=== PATIENT | male | born 1970 | race Caucasian/White ===

== ENCOUNTER 2017-05-10 17:21 | Inpatient (IN) | payer BC ==
[~2017-05-10] VITALS: Ht 180.3 cm; Wt 86.4 kg
[2017-05-10 17:22] VITALS: BP 163/89; PULSE 81; RESP 18; TEMP 98.5; O2SAT 99
--- NOTE | 2017-05-10 18:04 | PD ---
HPI Chief Complaint: Depression Time Seen by Provider: 17:37 Travel History International Travel<30 days: No Contact w/Intl Traveler<30days: No Traveled to known affect area: No History of Present Illness HPI PATIENT HAS A HISTORY OF ANXIETY AND DEPRESSION, HAS DR MENDOZA HIS PSYCHIATRIST IN [facility] BUT CANNOT SEE HIM UNTIL JUNE...IN THE MEANTIME PT COMPLAINTS OF DEPRESSION AND SUICIDAL IDEATION...SPECIFICALLY HAS THOUGHT OF MULTIPLE WAYS OF KILLING HIMSELF SINCE THAT IN HIS MIND WILL MAKE EVERYTHING SIMPLER FOR EVERYBODY...HAD THOUGHTS OF GOING OUT OF BOAT AND USING A ROPE TO HANG HIMSELF....AT ANOTHER TIME THOUGHT OF OVERDOSING ON HIS MEDICATIONS, AND ALSO THOUGHT OF TURNING THE CAR ON IN [place] TO USE FUMES TO KILL HIMSELF...THESE THOUGHTS HAVE BEEN GETTING MORE AND MORE PERSISTENT LATELY WHICH IS WHY HE DECIDED TO COME IN FOR INPATIENT CARE. PFSH Social History Tobacco Use: No Allergies-Medications (Allergen,Severity, Reaction): Coded Allergies: No Known Allergies (Unverified , 05/10/17) Reported Meds & Prescriptions Reported Meds & Active Scripts Active Reported Bupropion HCl 100 Mg Tab 150 Mg PO DAILY Buspirone (Buspirone HCl) 15 Mg Tab 15 Mg PO BID Trazodone (Trazodone HCl) 100 Mg Tablet 100 Mg PO HS Ativan (Lorazepam) 0.5 Mg Tab 0.5 Mg PO HS PRN Zoloft (Sertraline HCl) 50 Mg Tab 50 Mg PO DAILY Nexium (Esomeprazole DR) 20 Mg Capdr 20 Mg PO DAILY Finasteride (Finasteride (Alopecia)) 1 Mg Tab 1.25 Mg PO DAILY Zolpidem (Zolpidem Tartrate) 10 Mg Tab 12.5 Mg PO HS PRN Review of Systems Except as stated in HPI: all other systems reviewed are Neg General / Constitutional: No: Fever Eyes: No: Visual changes HENT: No: Headaches Cardiovascular: No: Chest Pain or Discomfort Respiratory: No: Shortness of Breath Gastrointestinal: No: Abdominal Pain Genitourinary: No: Dysuria Musculoskeletal: No: Pain Skin: No Rash Neurologic: No: Weakness Psychiatric: Positive: Depression, Suicidal Ideations Endocrine: No: Polydipsia Hematologic/Lymphatic: No: Easy Bruising Physical Exam Narrative GENERAL: SKIN: Warm and dry. HEAD: Atraumatic. Normocephalic. EYES: Pupils equal and round. No scleral icterus. No injection or drainage. ENT: No nasal bleeding or discharge. Mucous membranes pink and moist. NECK: Trachea midline. No JVD. CARDIOVASCULAR: Regular rate and rhythm. RESPIRATORY: No accessory muscle use. Clear to auscultation. Breath sounds equal bilaterally. GASTROINTESTINAL: Abdomen soft, non-tender, nondistended. MUSCULOSKELETAL: Extremities without clubbing, cyanosis, or edema. No obvious deformities. NEUROLOGICAL: Awake and alert. No obvious cranial nerve deficits. Motor grossly within normal limits. Five out of 5 muscle strength in the arms and legs. Normal speech. PSYCHIATRIC: DEPRESSED mood and SAD affect; Data Data Last Documented VS Vital Signs Date Time Temp Pulse Resp B/P (MAP) Pulse Ox O2 Delivery O2 Flow Rate FiO2 05/10/17 17:53 18 05/10/17 17:22 98.5 81 163/89 (113) 99 Room Air Orders Orders Complete Blood Count With Diff (05/10/17 17:31) Basic Metabolic Panel (Bmp) (05/10/17 17:31) Psych Screen (05/10/17 17:31) Drug Screen, Random Urine (05/10/17 17:31) Alcohol (Ethanol) (05/10/17 17:31) Admit Order (Ed Use Only) (05/10/17 23:36) Labs Laboratory Tests Test 05/10/17 18:50 White Blood Count 6.2 TH/MM3 Red Blood Count 4.95 MIL/MM3 Hemoglobin 15.1 GM/DL Hematocrit 43.6 % Mean Corpuscular Volume 88.0 FL Mean Corpuscular Hemoglobin 30.5 PG Mean Corpuscular Hemoglobin Concent 34.6 % Red Cell Distribution Width 11.9 % Platelet Count 164 TH/MM3 Mean Platelet Volume 7.2 FL Neutrophils (%) (Auto) 75.1 % Lymphocytes (%) (Auto) 12.2 % Monocytes (%) (Auto) 11.5 % Eosinophils (%) (Auto) 1.0 % Basophils (%) (Auto) 0.2 % Neutrophils # (Auto) 4.7 TH/MM3 Lymphocytes # (Auto) 0.8 TH/MM3 Monocytes # (Auto) 0.7 TH/MM3 Eosinophils # (Auto) 0.1 TH/MM3 Basophils # (Auto) 0.0 TH/MM3 CBC Comment DIFF FINAL Differential Comment Blood Urea Nitrogen 12 MG/DL Creatinine 1.16 MG/DL Random Glucose 78 MG/DL Calcium Level 8.8 MG/DL Sodium Level 139 MEQ/L Potassium Level 3.5 MEQ/L Chloride Level 103 MEQ/L Carbon Dioxide Level 28.5 MEQ/L Anion Gap 8 MEQ/L Estimat Glomerular Filtration Rate 67 ML/MIN Urine Opiates Screen NEG Urine Barbiturates Screen NEG Urine Amphetamines Screen NEG Urine Benzodiazepines Screen NEG Urine Cocaine Screen NEG Urine Cannabinoids Screen NEG Ethyl Alcohol Level LESS THAN 3 MG/DL MDM Medical Decision Making Medical Screen Exam Complete: Yes Emergency Medical Condition: Yes Medical Record Reviewed: Yes Differential Diagnosis ANEMIA V ELECTROLYTE ABNL V LIVER ABNL V SUICIDAL IDEATION Narrative Course PATIENT WAS MEDICALLY CLEARED, NO UTI, NO COINGESTIONS, NORMAL ELECTROLYTES AND NORMAL CBC Diagnosis Primary Impression: Depression with suicidal ideation Additional Impression: SANDS ACT-MEDICALLY CLEARED Petr Abrams MD May 10, 2017 18:04
[2017-05-10] MEDS ORDERED: ZOLO50TA PO (19:19)
[2017-05-10] MEDS ORDERED: TRAZ100T10 PO (19:19)
[2017-05-10] MEDS ORDERED: BUPR1TAB70 PO (19:19)
[2017-05-10] MEDS ORDERED: BUSP15TA PO ×2 (19:19→19:28)
[2017-05-10] MEDS ORDERED: LORA-392 PO (19:19)
[2017-05-10] MEDS ORDERED: NEXI20CA PO (19:19)
[2017-05-10] MEDS ORDERED: FINA1TAB16 PO (19:19)
[2017-05-10] MEDS ORDERED: ZOLP10TA3 PO (19:19)
[2017-05-10] MEDS ORDERED: BUPR100T4 PO (19:28)
[2017-05-10 20:18] LABS: AUTOMATED NEUTROPHIL # 4.7 TH/MM3 (1.8-7.7); BASOPHIL % 0.2 % (0.0-2.0); EOSINOPHIL # 0.1 TH/MM3 (0-0.4); HEMATOCRIT 43.6 % (39.0-51.0); HEMO FLAGS DIFF FINAL; LYMPH % 12.2 % (9.0-44.0); LYMPHOCYTE # 0.8 TH/MM3 (1.0-4.8); MEAN CORPUSCULAR HEMOGLOBIN 30.5 PG (27.0-34.0); MEAN CORPUSCULAR HGB CONC 34.6 % (32.0-36.0); MONO % 11.5 % (0.0-8.0); NEUT % 75.1 % (16.0-70.0); PLATELET COUNT 164 TH/MM3 (150-450); RED BLOOD COUNT 4.95 MIL/MM3 (4.50-5.90); RED CELL DISTRIBUTION WIDTH 11.9 % (11.6-17.2); WHITE BLOOD COUNT 6.2 TH/MM3 (4.0-11.0)
[2017-05-10 20:26] LABS: ANION GAP 8 MEQ/L (5-15); BICARBONATE 28.5 MEQ/L (21.0-32.0); BLOOD UREA NITROGEN 12 MG/DL (7-18); CHLORIDE 103 MEQ/L (98-107); GLOMERULAR FILTRATION RATE 67 ML/MIN (>89); POTASSIUM 3.5 MEQ/L (3.5-5.1); SODIUM (NA) 139 MEQ/L (136-145)
[2017-05-10 20:30] LABS: ALCOHOL LESS THAN 3 MG/DL (0-5)
[2017-05-10] MEDS ORDERED: MAGNESIUM HYDROXIDE SUSP 30 ML CUP PO PRN (23:45)
[2017-05-10] MEDS ORDERED: LORazepam 2 MG/ML VIAL IM PRN (23:45)
[2017-05-10] MEDS ORDERED: diphenhydrAMINE HCL 50 MG/ML VIAL IM PRN (23:45)
[2017-05-10] MEDS ORDERED: ALUMINUM/MAGNESIUM/SIMETH 30 ML CUP PO PRN (23:45)
[2017-05-10] MEDS ORDERED: LORazepam 1 MG TAB PO PRN (23:45)
[2017-05-10] MEDS ORDERED: hydrOXYzine HCL 50 MG TAB PO PRN (23:45)
[2017-05-10] MEDS ORDERED: diphenhydrAMINE HCL 50 MG CAP - HS PRN PO (23:45)
[2017-05-10] MEDS ORDERED: diphenhydrAMINE HCL 50 MG/ML VIAL - HS PRN IM (23:45)
[2017-05-10] MEDS ORDERED: diphenhydrAMINE HCL 50 MG CAP PO PRN (23:45)
[2017-05-11 01:05] VITALS: BP 140/87; PULSE 81; RESP 16; TEMP 97.6
[2017-05-11 05:49] VITALS: BP 124/74; PULSE 87; TEMP 98.1
[2017-05-11] MEDS ORDERED: SERTRALINE HCL 50 MG TAB PO SCH (09:00)
[2017-05-11] MEDS: buPROPion HCL 150 MG SUSTAINED RELEASE TAB PO SCH ×2 (09:00→09:02)
[2017-05-11] MEDS: busPIRone HCL 5 MG TAB PO SCH ×2 (09:02→21:34)
[2017-05-11] MEDS: PANTOPRAZOLE SOD 20 MG DELAYED RELEASE TAB PO SCH (09:02)
[2017-05-11] MEDS: SERTRALINE HCL 50 MG TAB PO SCH (09:46)
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
[2017-05-11 12:37] LABS: INDIRECT BILIRUBIN 0.3 MG/DL (0.0-0.8); TOTAL BILIRUBIN ADULT 0.4 MG/DL (0.2-1.0)
[2017-05-11 18:16] VITALS: BP 129/72; PULSE 87; RESP 16; TEMP 98.2; O2SAT 99
[2017-05-11] MEDS ORDERED: traZODone HCL 100 MG TAB PO SCH (21:00)
[2017-05-11] MEDS: ACETAMINOPHEN 325 MG TAB PO PRN (21:34)
[2017-05-11] MEDS: ZOLPIDEM TARTRATE 10 MG TAB PO PRN (21:34)
[2017-05-12 06:18] VITALS: BP 126/74; PULSE 84; RESP 17; TEMP 99; O2SAT 100
[2017-05-12] MEDS: PANTOPRAZOLE SOD 20 MG DELAYED RELEASE TAB PO SCH (08:53)
[2017-05-12] MEDS: SERTRALINE HCL 50 MG TAB PO SCH (08:54)
[2017-05-12] MEDS: busPIRone HCL 5 MG TAB PO SCH ×2 (08:54→21:31)
[2017-05-12] MEDS: buPROPion HCL 150 MG SUSTAINED RELEASE TAB PO SCH (08:54)
[2017-05-12] MEDS: ACETAMINOPHEN 325 MG TAB PO PRN ×2 (08:58→22:44)
[2017-05-12 12:06] LABS: HDL CHOLESTEROL 65.5 MG/DL (40.0-60.0); LDL CHOLESTEROL 89 MG/DL (0-99)
--- NOTE | 2017-05-12 12:30 | HHI.PYPN ---
Subjective Chief Complaint: Depression/SI Remarks Patient seen and examined with nurse. Chart reviewed. We have faxed requests but received none of the records that I ordered from outside providers. Case discussed with nursing staff. No significant behavioral issues overnight. On my examination today, the patient reports that he slept poorly. He would like to focus on adjusting pharmacotherapy to improve sleep. Mood remains a little low and anxiety remains prominent. He denies any suicidal ideation. Denies side effects from medications. No physical complaints. I discussed the thyroid function test findings, and the patient does note that he has some cold intolerance in addition to poor concentration and low energy. No reported constipation or brittle hair. Review of Systems Except as stated in HPI: all other systems reviewed are Neg Mental Status Examination Appearance: Appropriate Consciousness: Alert Orientation: x4 Motor Activity: Normal gait, Other (no motor abnormalities noted) Speech: Unremarkable Language: Adequate Fund of Knowledge: Adequate Attention and Concentration: Adequate Memory: Unremarkable (grossly intact on clinical exam) Mood: Other (depressed but perhaps improving somewhat in the milieu) Affect: Other (more reactive today) Thought Process & Associations: Intact, Logical, Goal directed, Linear Thought Content: Appropriate Hallucination Type: None Delusion Type: None Suicidal Ideation: No Suicidal Plan: No Suicidal Intention: No Homicidal Ideation: No Homicidal Plan: No Homicidal Intention: No Insight: Adequate Judgment: Adequate Results Labs Test 05/11/17 16:41 05/12/17 10:19 Free Thyroxine 0.77 NG/DL Triglycerides Level 75 MG/DL Cholesterol Level 169 MG/DL LDL Cholesterol 89 MG/DL HDL Cholesterol 65.5 MG/DL Cholesterol/HDL Ratio 2.58 RATIO Labs reviewed. Free T4 is at the very lower limit of normal. Vitals/IOs Vital Signs Date Time Temp Pulse Resp B/P (MAP) Pulse Ox O2 Delivery O2 Flow Rate FiO2 05/12/17 06:18 99.0 84 17 126/74 (91) 100 05/10/17 17:22 Room Air Assessment & Plan Problem List: (1) Major depressive disorder, recurrent severe without psychotic features ICD Codes: F33.2 - Major depressive disorder, recurrent severe without psychotic features (2) Anxiety disorder, unspecified ICD Codes: F41.9 - Anxiety disorder, unspecified Assessment & Plan Add Seroquel 50 mg at bedtime for sleep. Risks and benefits as well as alternatives discussed with the patient for this agent. I have highlighted the potential side effects of sedation, increased blood sugar/cholesterol/weight, movement disorder side effects. Check EKG for QTc, and old antipsychotic if QTc >450ms. Consult to hospitalist regarding thyroid function test abnormalities. Continue to monitor on an inpatient unit. Continue other medications and care as ordered. Justification for Cont. Inpt. Med changes. Monitoring for impairments in safety. Risk for decompensation in less restrictive environment. Discharge Planning Pending stabilization Request HC Surrog/Guard Advoc?: No Problem Qualifiers (1) Anxiety disorder, unspecified: Qualified Codes: F41.9 - Anxiety disorder, unspecified Dakota Ríos MD May 12, 2017 12:30
[2017-05-12 15:03] LABS: HEMOGLOBIN A1b 0.6 %; HEMOGLOBIN Ao 86.8 %; HEMOGLOBIN F 1.2 %; HEMOGLOBIN LA1C 1.8 %; HEMOGLOBIN P3 3.2 %
--- NOTE | 2017-05-12 18:09 | PD.CONS ---
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 Patient reports feeling very weak and lethargic. He used to enjoy working out and also enjoyed his work. 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 He feels like he does not want to get out of bed. He has lost about 30 pounds over 2 months. He does reports some voice hoarseness. Denies any chest pain, fever or chills. He reports some shortness of breath. He denies any night sweats. However, he does report anxiety. Review of Systems Except as stated in HPI: all other systems reviewed are Neg Past Family Social History Allergies: Coded Allergies: No Known Allergies (Unverified , 05/10/17) Past Medical History Throat cancer diagnosed in 2016 Past Surgical History Prostate surgery Tonsillectomy Throat cancer surgery in 2016 Reported Medications Current Medications Medications (Trade) Dose Ordered Sig/Miriam Route Start Time Stop Time Status Last Admin (Ativan) 1 mg Q6H PRN PO 05/10/17 23:45 (Ativan Inj) 1 mg Q6H PRN IM 05/10/17 23:45 (Tylenol) 650 mg Q4H PRN PO 05/10/17 23:45 05/12/17 08:58 (Milk Of Magnesia Liq) 30 ml DAILY PRN PO 05/10/17 23:45 (Mag-Al Plus Susp Liq) 30 ml Q6H PRN PO 05/10/17 23:45 (Protonix) 20 mg DAILY PO 05/11/17 09:00 05/12/17 08:53 (Buspar) 15 mg BID PO 05/11/17 09:00 05/12/17 08:54 (Wellbutrin Sr) 150 mg DAILY PO 05/10/17 09:00 05/12/17 08:54 (Zoloft) 100 mg DAILY PO 05/11/17 09:00 05/12/17 08:54 (Ambien) 10 mg HS PRN PO 05/11/17 21:00 05/11/17 21:34 (SEROquel) 50 mg HS PO 05/12/17 21:00 Family History Father - skin cancer Social History Patient does not smoke cigarettes or uses illicit drugs. He drinks alcohol occasionally. Physical Exam Vital Signs Vital Signs Date Time Temp Pulse Resp B/P (MAP) Pulse Ox O2 Delivery O2 Flow Rate FiO2 05/12/17 06:18 99.0 84 17 126/74 (91) 100 05/11/17 18:16 98.2 87 16 129/72 (91) 99 Physical Exam GENERAL: This is a well-nourished, well-developed patient, in no apparent distress. SKIN: No rashes, ecchymoses or lesions. Warm and dry. HEAD: Atraumatic. Normocephalic. No temporal or scalp tenderness. EYES: Pupils equal round and reactive. No injection or drainage. ENT: Nose without bleeding, purulent drainage or septal hematoma. Airway patent. NECK: Trachea midline. No lymphadenopathy. Supple, nontender, no meningeal signs. No thyromegaly or nodules noted. CARDIOVASCULAR: Regular rate and rhythm without murmurs, gallops, or rubs. No JVD. RESPIRATORY: Clear to auscultation. Breath sounds equal bilaterally. No wheezes , rales, or rhonchi. GASTROINTESTINAL: Abdomen soft, non-tender, nondistended. No guarding. MUSCULOSKELETAL: Extremities without clubbing, cyanosis, or edema. NEUROLOGICAL: Awake and alert. Cranial nerves II through XII intact. No focal neurological deficits. Normal speech. Laboratory Laboratory Tests Test 05/12/17 10:19 Hemoglobin A1c 4.9 Triglycerides Level 75 Cholesterol Level 169 LDL Cholesterol 89 HDL Cholesterol 65.5 Cholesterol/HDL Ratio 2.58 Free Triiodothyronine (T3) pg/dL 2.56 Result Diagram: 05/10/17184905/10/171849 Assessment and Plan Problem List: (1) Subclinical hypothyroidism ICD Code: E03.9 - Hypothyroidism, unspecified (2) Depression with suicidal ideation ICD Code: F32.9 - Major depressive disorder, single episode, unspecified; R45.851 - Suicidal ideations Status: Acute (3) Anxiety disorder, unspecified ICD Code: F41.9 - Anxiety disorder, unspecified Assessment and Plan Mr. Red is a pleasant 47-year-old male with a history of throat cancer in 2016 status post surgery, chemoradiation therapy who presented to the emergency department on 04/10/2017 due to suicidal ideations. Patient reports feeling lethargy, depressed, lack of energy. He does not want to get out of bed. He also lost interest in working out which he used to enjoy. 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 Lab work up shows TSH elevated to 18.1, free T4 0.77, free T3 2.56. - Subclinical hypothyroidism - Elevated TSH 18.1 with normal free T4 and free T3 argues for treatment at this point. - Will start patient on levothyroxine 50 g every morning. - Primary hypothyroidism is a possibility. - However given patient's history of throat cancer and radiation, malignancy is a possibility as well. - We'll obtain a thyroid ultrasound. However patient should follow-up with his oncologist in [place]. - Patient is also encouraged to obtain an outpatient deburrer machine for evaluation and follow-up. - Repeat TSH in 6 weeks - Suicidal ideations - Depression - This symptoms may be related to hypothyroidism. Thank you for the consult. We'll continue to follow this patient with you. Problem Qualifiers (1) Anxiety disorder, unspecified: Qualified Codes: F41.9 - Anxiety disorder, unspecified Rainer Garcia DO May 12, 2017 6:09 pm
--- NOTE | 2017-05-12 18:58 | EKG ---
Date Performed: 05/12/2017 Time Performed: 17:39:15 PTAGE: 47 years EKG: Sinus rhythm NORMAL ECG NO PREVIOUS TRACING DOCTOR: Galen Allen Interpretating Date/Time 05/12/2017 18:56:37
[2017-05-12 20:36] VITALS: BP 122/72; PULSE 77; RESP 16; TEMP 97.9; O2SAT 99
[2017-05-12] MEDS: QUEtiapine FUMARATE 25 MG TAB PO SCH (21:30)
[2017-05-12] MEDS: ZOLPIDEM TARTRATE 10 MG TAB PO PRN (22:45)
[2017-05-13] MEDS: LEVOTHYROXINE SODIUM 50 MCG TAB PO SCH (06:26)
[2017-05-13 06:43] VITALS: BP 123/72; PULSE 72; RESP 18; TEMP 97.4; O2SAT 97
[2017-05-13] MEDS: PANTOPRAZOLE SOD 20 MG DELAYED RELEASE TAB PO SCH (08:18)
[2017-05-13] MEDS: SERTRALINE HCL 50 MG TAB PO SCH (08:18)
[2017-05-13] MEDS: buPROPion HCL 150 MG SUSTAINED RELEASE TAB PO SCH (08:18)
[2017-05-13] MEDS: busPIRone HCL 5 MG TAB PO SCH ×2 (08:19→21:31)
--- NOTE | 2017-05-13 09:12 | RADRPT ---
EXAM DATE/TIME: 05/13/2017 08:35 [facility] COMPARISON: No previous studies available for comparison. INDICATIONS : Thyroid mass. Elevated TSH. MEDICAL HISTORY : Gastroesophageal reflux disease. Bipolar. SURGICAL HISTORY : Left lung tumor removed. ENCOUNTER: Initial ACUITY: 3 days PAIN SCORE: 0/10 LOCATION: Bilateral neck MEASUREMENTS: RIGHT LOBE: 4.3 x 1.1 x 1.3 cm LEFT LOBE: 3.0 x 1.3 x 0.8 cm FINDINGS: RIGHT LOBE: Homogeneous echotexture without nodules or cysts. Vascularity is within normal limits. LEFT LOBE: Homogeneous echotexture without nodules or cysts. Vascularity is within normal limits. ISTHMUS: Normal in size without focal abnormality. CONCLUSION: No thyroid nodule or significant abnormality is identified. Ace Grimaldo MD on May 13, 2017 at 9:10 Board Certified Radiologist. This report was verified electronically.
--- NOTE | 2017-05-13 09:21 | HHI.PR ---
Subjective Remarks Follow-up for subclinical hypothyroidism. Patient is currently doing well. Denies any acute concerns. Wants to go home. Objective Vitals Vital Signs Date Time Temp Pulse Resp B/P (MAP) Pulse Ox O2 Delivery O2 Flow Rate FiO2 05/13/17 06:43 97.4 72 18 123/72 (89) 97 05/12/17 20:36 97.9 77 16 122/72 (89) 99 I/O 05/12/17 05/12/17 05/12/17 05/13/17 05/13/17 05/13/17 07:00 15:00 23:00 07:00 15:00 23:00 Intake Total 360 ml 360 ml Balance 360 ml 360 ml Intake Oral 360 ml 360 ml Result Diagram: 05/10/17184905/10/171849 Imaging Last Impressions Thyroid Ultrasound 05/13/17 0000 Signed Impressions: Service Date/Time: Saturday, May 13, 2017 08:35 - CONCLUSION: No thyroid nodule or significant abnormality is identified. Ace Grimaldo MD Objective Remarks GENERAL: Alert, oriented 3, NAD. SKIN: Warm and dry. HEAD: Normocephalic. EYES: No scleral icterus. No injection or drainage. NECK: Supple, trachea midline. No JVD or lymphadenopathy. No thyromegaly or nodules noted. CARDIOVASCULAR: Regular rate and rhythm without murmurs, gallops, or rubs. RESPIRATORY: Breath sounds equal bilaterally. No accessory muscle use. GASTROINTESTINAL: Abdomen soft, non-tender, nondistended. MUSCULOSKELETAL: No cyanosis, or edema. BACK: Nontender without obvious deformity. No CVA tenderness. A/P Problem List: (1) Subclinical hypothyroidism ICD Code: E03.9 - Hypothyroidism, unspecified (2) Depression with suicidal ideation ICD Code: F32.9 - Major depressive disorder, single episode, unspecified; R45.851 - Suicidal ideations Status: Acute (3) Anxiety disorder, unspecified ICD Code: F41.9 - Anxiety disorder, unspecified Assessment and Plan Mr. Red is a pleasant 47-year-old male with a history of throat cancer in 2016 status post surgery, chemoradiation therapy who presented to the emergency department on 04/10/2017 due to suicidal ideations. Patient reports feeling lethargy, depressed, lack of energy. He does not want to get out of bed. He also lost interest in working out which he used to enjoy. 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 Lab work up shows TSH elevated to 18.1, free T4 0.77, free T3 2.56. - Subclinical hypothyroidism - Elevated TSH 18.1 with normal free T4 and free T3 argues for treatment at this point. - Will start patient on levothyroxine 50 g every morning. - Primary hypothyroidism is a possibility. - However given patient's history of throat cancer and radiation, malignancy is a possibility as well. - Thyroid ultrasound in progress. However patient should follow-up with his oncologist in [place]. - Patient is also encouraged to obtain an outpatient electronics engineering professor for evaluation and follow-up. - Repeat TSH in 6 weeks - Suicidal ideations - Depression - This symptoms may be related to hypothyroidism. Full code. Ambulation Patient can be discharged from medical standpoint. We'll sign off. Please contact us with any questions. Problem Qualifiers (1) Anxiety disorder, unspecified: Qualified Codes: F41.9 - Anxiety disorder, unspecified Rainer Garcia DO May 13, 2017 9:20 am
[2017-05-13] MEDS ORDERED: LEVO.05 PO (09:30)
--- NOTE | 2017-05-13 16:18 | HHI.PYPN ---
Subjective Chief Complaint: Depression/SI Remarks Patient seen and examined with nurse. Chart reviewed. I have reviewed the paper chart on two separate occasions today and see no records from Dr. Vega, nor do I see any records from patient's oncologist or any other providers. Case discussed with nursing staff who reports patient has been no behavioral issues overnight. A psychotic, female patient did apparently accuse patient of being a child molester this morning, which understandably perturbed the patient , but he has regrouped well from this incident. On my exam, patient reports mood is improving. He denies any suicidal ideation. He is future oriented. He slept a little better with Seroquel but still had to utilize Ambien p.r.n.. Anxiety remains an issue, and patient would like to make pharmacologic adjustments in service of ameliorating this. He denies any AVH. No delusions. Denies side effects from medications. No physical complaints. I had received a message today that patient's was requesting a call. With patient's permission as he is a competent, adult patient, I placed a call to this afternoon. is unexpectedly hostile and aggressive on the phone. She demands to know why staff have not provided her with updates. I myself spoke with the day before yesterday and try to explain that I am happy to speak with her at patient's instruction but that it is not proper to share sensitive details of his case without patient's specific approval. In response , is needlessly angry and accusatory. From what I can gather, she is concerned about patient's medical conditions and feels he would be better served following up with outpatient providers. I did discuss 's dissatisfaction with service line salary and wage administrator Cammie Donis. After concluding my conversation with , I return to speak with patient. He expresses desire to remain on the unit to continue to work on his psychiatric issues, in particular the anxiety. I have reviewed the manner in which information will be disclosed to , and he is in agreement with this. We discuss possible pharmacologic approaches to improving anxiety and settle on the approach outlined below. I do note some passive-dependent traits in patient that may be of salience. Review of Systems Except as stated in HPI: all other systems reviewed are Neg Mental Status Examination Appearance: Appropriate Consciousness: Alert Orientation: x4 Motor Activity: Other (no motoric abnormalities noted) Speech: Unremarkable Language: Adequate Fund of Knowledge: Adequate Attention and Concentration: Adequate Memory: Unremarkable (remains grossly intact on clinical examination) Mood: Other (mood is improving) Affect: Other (fairly full and reactive today) Thought Process & Associations: Intact, Logical, Goal directed, Linear Thought Content: Appropriate Hallucination Type: None Delusion Type: None Suicidal Ideation: No Suicidal Plan: No Suicidal Intention: No Homicidal Ideation: No Homicidal Plan: No Homicidal Intention: No Insight: Adequate Judgment: Adequate Results Labs Item Value Date Time Thyroid Stimulating Hormone 3rd Gen 18.100 uIU/ML H 05/10/17 1850 Free Thyroxine 0.77 NG/DL 05/11/17 1641 Free Triiodothyronine (T3) pg/dL 2.56 PG/ML 05/12/17 1019 Hemoglobin A1c 4.9 % 05/12/17 1019 Triglycerides Level 75 MG/DL 05/12/17 1019 Cholesterol Level 169 MG/DL 05/12/17 1019 LDL Cholesterol 89 MG/DL 05/12/17 1019 HDL Cholesterol 65.5 MG/DL H 05/12/17 1019 Cholesterol/HDL Ratio 2.58 RATIO 05/12/17 1019 Last Impressions Thyroid Ultrasound 05/13/17 0000 Signed Impressions: Service Date/Time: Saturday, May 13, 2017 08:35 - CONCLUSION: No thyroid nodule or significant abnormality is identified. Ace Grimaldo MD Labs and study impression reviewed. Vitals/IOs Vital Signs Date Time Temp Pulse Resp B/P (MAP) Pulse Ox O2 Delivery O2 Flow Rate FiO2 05/13/17 06:43 97.4 72 18 123/72 (89) 97 05/10/17 17:22 Room Air Intake and Output 05/13/17 05/13/17 05/14/17 08:00 16:00 00:00 Intake Total 360 ml Balance 360 ml Assessment & Plan Problem List: (1) Major depressive disorder, recurrent severe without psychotic features ICD Codes: F33.2 - Major depressive disorder, recurrent severe without psychotic features (2) Anxiety disorder, unspecified ICD Codes: F41.9 - Anxiety disorder, unspecified Assessment & Plan Psychiatric condition is overall improving. Add daytime dose of Seroquel to manage anxiety, 25mg BID morning and afternoon. Continue Seroquel at HS. I have discussed with patient that this is an off-label use of this agent. Continue other psychotropics as ordered. Hospitalist input noted and appreciated; I see Dr. Garcia has signed off of the case. I did review results of labs/studies with patient. did mention particular concern that patient' s testosterone level might be abnormal, noting that he has had low levels in the past, and so I will check a testosterone level tomorrow morning. Continue to monitor on inpatient unit. Continue other medications and care as ordered. Justification for Cont. Inpt. Med changes. Monitoring for impairments in safety, none noted. Discharge Planning Anticipate discharge shortly after the weekend. Request HC Surrog/Guard Advoc?: No Problem Qualifiers (1) Anxiety disorder, unspecified: Qualified Codes: F41.9 - Anxiety disorder, unspecified Dakota Ríos MD May 13, 2017 16:18
[2017-05-13 18:59] VITALS: BP 145/88; PULSE 83; RESP 16; TEMP 97.1; O2SAT 100
[2017-05-13] MEDS: QUEtiapine FUMARATE 25 MG TAB PO SCH (21:31)
[2017-05-13] MEDS: ZOLPIDEM TARTRATE 10 MG TAB PO PRN (22:11)
[2017-05-14 06:06] VITALS: BP 122/66; PULSE 80; RESP 16; TEMP 98.4; O2SAT 96
[2017-05-14] MEDS: LEVOTHYROXINE SODIUM 50 MCG TAB PO SCH (06:18)
[2017-05-14] MEDS: buPROPion HCL 150 MG SUSTAINED RELEASE TAB PO SCH (08:53)
[2017-05-14] MEDS: SERTRALINE HCL 50 MG TAB PO SCH (08:54)
[2017-05-14] MEDS: PANTOPRAZOLE SOD 20 MG DELAYED RELEASE TAB PO SCH (08:54)
[2017-05-14] MEDS: busPIRone HCL 5 MG TAB PO SCH ×2 (08:54→21:01)
[2017-05-14] MEDS: ACETAMINOPHEN 325 MG TAB PO PRN (08:59)
--- NOTE | 2017-05-14 12:30 | HHI.PYPN ---
Subjective Chief Complaint: Depression/SI Remarks Patient was seen and case discussed with nursing. Patient continues to complain of anxiety which is evident during the interview. Affect is constricted. We discussed his history and the medical reasons that could be contributing to depression. Patient is asking about his testosterone levels. He has been going to groups. He denies suicidal or homicidal ideations intent or plan. Tolerating medications well Mental Status Examination Appearance: Appropriate Consciousness: Alert Orientation: x4 Motor Activity: Other (no motoric abnormalities noted) Speech: Unremarkable Language: Adequate Fund of Knowledge: Adequate Attention and Concentration: Adequate Memory: Unremarkable (remains grossly intact on clinical examination) Mood: Other (mood is improving) Affect: Other (constricted) Thought Process & Associations: Intact, Logical, Goal directed, Linear Thought Content: Appropriate Hallucination Type: None Delusion Type: None Suicidal Ideation: No Suicidal Plan: No Suicidal Intention: No Homicidal Ideation: No Homicidal Plan: No Homicidal Intention: No Insight: Adequate Judgment: Adequate Results Labs Test 05/14/17 08:36 Vitals/IOs Vital Signs Date Time Temp Pulse Resp B/P (MAP) Pulse Ox O2 Delivery O2 Flow Rate FiO2 05/14/17 06:06 98.4 80 16 122/66 (84) 96 05/10/17 17:22 Room Air Intake and Output 05/14/17 05/14/17 05/15/17 08:00 16:00 00:00 Intake Total 480 ml 240 ml Balance 480 ml 240 ml Assessment & Plan Problem List: (1) Major depressive disorder, recurrent severe without psychotic features ICD Codes: F33.2 - Major depressive disorder, recurrent severe without psychotic features (2) Anxiety disorder, unspecified ICD Codes: F41.9 - Anxiety disorder, unspecified Assessment & Plan Continue current treatment plan Justification for Cont. Inpt. Patient would decompensate in a less restrictive setting Request HC Surrog/Guard Advoc?: No Problem Qualifiers (1) Anxiety disorder, unspecified: Qualified Codes: F41.9 - Anxiety disorder, unspecified Mateo Kevin DO May 14, 2017 12:30
[2017-05-14] MEDS: QUEtiapine FUMARATE 25 MG TAB PO SCH ×2 (16:13→21:01)
[2017-05-14] MEDS: ZOLPIDEM TARTRATE 10 MG TAB PO PRN (21:01)
--- NOTE | 2017-05-15 05:31 | MB ---
cc: JD MALCOLM M.D. DATE OF CONSULTATION: 05/14/2017 REASON FOR CONSULTATION: Consult requested by psychiatrist for evaluation of history of throat cancer, admitted with depression and suicidal ideation found to have subclinical hypothyroidism. Psychiatrist wanted to know whether inpatient workup for history of cancer is needed. HISTORY OF PRESENT ILLNESS This is a 47-year-old male. 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 The patient states that this was incomplete surgery and required combined concurrent radiation and cisplatinol chemotherapy which was given for seven weeks. He received cisplatinol chemotherapy once a week with the radiation treatment. All his treatments were done at [facility]. His medical oncologist is Dr. Phillips. The patient states that he went into remission. The patient has been suffering from severe depression for the last one year. He did not go into detail but he has been having a lot of psychiatric issues for the last one year. He had suicidal ideation and he was admitted to the hospital by the psychiatrist. Medical consult was requested for elevated TSH. Patient was found to have TSH of 18.1, free T4 is normal at 0.77 and free T3 is normal at 2.56. The patient has subclinical hypothyroidism and was started on levothyroxine. He also underwent thyroid ultrasound which showed no thyroid nodule or significant abnormality. Given his previous history of throat cancer, I have been asked to see him. The patient denies any difficulty swallowing. He denies any nausea or vomiting. He has lost 20 to 30 pounds. He is a respiratory therapist. He stated that if he has hypothyroidism, then he should be gaining weight instead of losing weight. However, he also has severe depression and i think the weight loss is due to severe depression The rest of the review of systems is negative. PAST MEDICAL HISTORY 1. 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 2. Hypogonadism. PAST SURGICAL HISTORY: 1. Prostate surgery. 2. Tonsillectomy. 3. Resection of the tumor at the base of the tongue. ALLERGIES None. MEDICATIONS 1. Seroquel. 2. Protonix. 3. Wellbutrin 4. Zoloft 5. Levothyroxine 6. Ativan. FAMILY HISTORY: None for malignancy. SOCIAL HISTORY: The patient is , lives with his . He does not smoke cigarettes, does not drink alcohol. He is a respiratory therapist. He used to live in [place] but now moved to [place] recently. PHYSICAL EXAMINATION: He is a well-developed, well-nourished white male in no apparent distress. Vital signs: Temperature 98.4, heart rate is 80, blood pressure 122/66. O2 saturation is 96% on room air. HEENT: PERRLA, EOMI, anicteric. No oral lesions noted. Neck: No lymphadenopathy noted. Lungs: Lungs are clear. No wheezing, rhonchi or rales. Heart: Heart is regular rate and rhythm. Abdomen: Soft, nontender. No hepatosplenomegaly. Extremities: No pedal edema. Neurology: Awake, alert, oriented times threes. Skin: No significant lesions are noted. ASSESSMENT 1. 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 2. Severe depression with significant weight loss. 3. Elevated TSH with normal free T3 and free T4. PLAN I have reviewed his available records and I had an extensive discussion with the patient and his regarding the history of oral pharyngeal cancer. The patient is a respiratory therapist and he is a very good historian. Both the patient and his are very pleasant. He is under the care of Dr. Manuel, who is a medical oncologist at [facility]. The patient stated that he recently had a CT scan of the soft tissue neck last week at [facility]. According to him, it was negative for any evidence of recurrent cancer. They are wondering if his weight loss was due to the cancer. He has no symptoms of dysphagia. He does not have any neck masses. Moreover, his recent CT scan of the soft tissue neck reported to be negative for any recurrent or residual malignancy according to the patient. The most likely cause of weight loss is severe depression. Patient's TSH was found to be elevated at 18, free T4 and free T3 both are normal. The patient was started on levothyroxine. Both the patient and his wanted to see an apn. I discussed with them that the hospital does not have any inpatient apn. These services are not available anymore. Therefore, the patient needs to be evaluated by outpatient apn. Also I did not recommend any further workup for his oropharyngeal cancer as inpatient. Once he is discharged, then he can follow up with his medical oncologist, Dr. Manuel at [facility]. The patient states that Dr. Manuel is kind of a family friend and wishes to follow with him. He stated that Dr. Manuel is going to retire next year, September. They will ask him for further recommendations regarding any further follow up of his oropharyngeal cancer. Both patient and agreed not to have any inpatient workup as they anticipate to be discharged by Tuesday. They have asked several questions and these were answered to their satisfaction. Thank you for asking my opinion. Patrick Malcolm MD /NICOLAS /12:35 AM /4:12 AM LAYLA
[2017-05-15] MEDS: LEVOTHYROXINE SODIUM 50 MCG TAB PO SCH (05:55)
[2017-05-15 06:38] VITALS: BP 129/77; PULSE 71; RESP 16; TEMP 98.5; O2SAT 97
[2017-05-15] MEDS: busPIRone HCL 5 MG TAB PO SCH ×2 (08:48→20:56)
[2017-05-15] MEDS: SERTRALINE HCL 50 MG TAB PO SCH (08:48)
[2017-05-15] MEDS: PANTOPRAZOLE SOD 20 MG DELAYED RELEASE TAB PO SCH (08:48)
[2017-05-15] MEDS: buPROPion HCL 150 MG SUSTAINED RELEASE TAB PO SCH (08:48)
[2017-05-15] MEDS: QUEtiapine FUMARATE 25 MG TAB PO SCH ×3 (08:48→20:56)
--- NOTE | 2017-05-15 14:47 | HHI.PYPN ---
Subjective Chief Complaint: Depression/SI Remarks Patient was seen and case discussed with nursing. Patient continues to improve. 's pleasant and cooperative with exam. There is a moderate brightening in affect. He is having a productive visit with his family. Says he is feeling less anxious. Denies auditory visual hallucinations. Denies suicidal or homicidal ideation intent or plan. Tolerating his medications well Mental Status Examination Appearance: Appropriate Consciousness: Alert Orientation: x4 Motor Activity: Other (no motoric abnormalities noted) Speech: Unremarkable Language: Adequate Fund of Knowledge: Adequate Attention and Concentration: Adequate Memory: Unremarkable (remains grossly intact on clinical examination) Mood: Other (mood is improving) Affect: Other (constricted) Thought Process & Associations: Intact, Logical, Goal directed, Linear Thought Content: Appropriate Hallucination Type: None Delusion Type: None Suicidal Ideation: No Suicidal Plan: No Suicidal Intention: No Homicidal Ideation: No Homicidal Plan: No Homicidal Intention: No Insight: Adequate Judgment: Adequate Results Vitals/IOs Vital Signs Date Time Temp Pulse Resp B/P (MAP) Pulse Ox O2 Delivery O2 Flow Rate FiO2 05/15/17 06:38 98.5 71 16 129/77 (94) 97 Assessment & Plan Problem List: (1) Major depressive disorder, recurrent severe without psychotic features ICD Codes: F33.2 - Major depressive disorder, recurrent severe without psychotic features (2) Anxiety disorder, unspecified ICD Codes: F41.9 - Anxiety disorder, unspecified Assessment & Plan Continue current treatment plan Justification for Cont. Inpt. Patient will decompensate in a less restrictive setting Request HC Surrog/Guard Advoc?: No Problem Qualifiers (1) Anxiety disorder, unspecified: Qualified Codes: F41.9 - Anxiety disorder, unspecified Mateo Kevin DO May 15, 2017 14:47
[2017-05-15 18:15] VITALS: BP 143/98; PULSE 80; RESP 17; TEMP 98.6; O2SAT 98
[2017-05-15] MEDS: ZOLPIDEM TARTRATE 10 MG TAB PO PRN (21:30)
[2017-05-16 05:34] VITALS: BP 121/67; PULSE 71; RESP 17; TEMP 98.3; O2SAT 96
[2017-05-16] MEDS: LEVOTHYROXINE SODIUM 50 MCG TAB PO SCH (05:51)
[2017-05-16] MEDS: PANTOPRAZOLE SOD 20 MG DELAYED RELEASE TAB PO SCH (08:37)
[2017-05-16] MEDS: buPROPion HCL 150 MG SUSTAINED RELEASE TAB PO SCH (08:37)
[2017-05-16] MEDS: SERTRALINE HCL 50 MG TAB PO SCH (08:37)
[2017-05-16] MEDS: QUEtiapine FUMARATE 25 MG TAB PO SCH (08:37)
[2017-05-16] MEDS: busPIRone HCL 5 MG TAB PO SCH (08:37)
[2017-05-16] MEDS ORDERED: ZOLO50TA PO (11:19)
[2017-05-16] MEDS ORDERED: SERO25TA PO ×2 (11:19)
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
== END 2017-05-16 13:00 | disposition home or self-care (01) | DRG 885 ==
LOC: NEPD 17:21 → NEDA 23:38 → H260 05-11 01:05
PROVIDERS: ADMIT Psychiatry & Neurology Psychiatry; ATTEND Psychiatry & Neurology Psychiatry
DX: F33.2 Major depressive disorder, recurrent severe without psychotic features (principal); R45.851 Suicidal ideations; F41.1 Generalized anxiety disorder; H93.19 Tinnitus, unspecified ear; K21.9 Gastro-esophageal reflux disease without esophagitis; E03.9 Hypothyroidism, unspecified; Z92.3 Personal history of irradiation; R63.4 Abnormal weight loss; E29.1 Testicular hypofunction; Z68.26 Body mass index [BMI] 26.0-26.9, adult; Z85.810 Personal history of malignant neoplasm of tongue; Z92.21 Personal history of antineoplastic chemotherapy
CPT/HCPCS: 76536; 80048; 80061; 80076; 80307; 83036; 84403; 84410; 84439; 84443; 84481; 85025; 93005; 99285